=== PATIENT | male | born 1960 | race Caucasian/White ===

== ENCOUNTER → 2018-09-11 | Outpatient (CLI) | payer OTHER ==
[~2018-09-11] MED LIST: CETI10CA8 PO; DIP25 PO; PER PO
--- NOTE | 2018-09-11 16:03 | RADIOLOGY IMAGING REPORT ---
FACILITY: [facility] - [place] PATIENT NAME: Eagle Mendez : 1960 MR: [id number] V: [id number] EXAM DATE: ORDERING PHYSICIAN: RAJIV WANG TECHNOLOGIST: Location: [facility] [place] Patient: Eagle Mendez : 1960 Visit/Account:[id number] Date of Sevice: 09/11/2018 Bilateral RIBS: HISTORY: Left anterior rib pain after moving object x1 week. BB at site of reported pain. Additiona l history, left rib trauma, mass felt ribs 5/6 anterior midclavicular under inferior portion on left breast. COMPARISON: None. FINDINGS: Frontal view the chest and coned-down AP and oblique views were obtained of both ribs. A B B has been placed at the site of the patient's pain. There is no rib fracture identified. No lytic or sclerotic bony lesions. There is mild irregularity of the lateral aspect of the 10th rib but this is symmetric compared to the opposite side. Cardiomediastinal silhouette is within normal limits. There is no infiltrate or pleural effusion no pneumothorax. Pulmonary vasculature is normal. IMPRESSION: 1. No evidence of an acute rib fracture. 2. No acute cardiopulmonary abnormality. Report Dictated By: Kenya Szymanski MD at 09/11/2018 3:55 PM Report E-Signed By: Kenya Szymanski MD at 09/11/2018 3:58 PM WSN:[email or web address]
== END ==
LOC: RAD 10:02
PROVIDERS: ATTEND Family Medicine
DX: R22.2 Localized swelling, mass and lump, trunk (principal)
CPT/HCPCS: 71111